=== PATIENT | female | born 1980 | race Two or more races ===

== ENCOUNTER 2024-08-21 13:42 | Inpatient (IN) | payer OTHER ==
[~2024-08-21] VITALS: Ht 162.6 cm; Wt 61.7 kg
[2024-08-21] MEDS ORDERED: SODIUM CHLORIDE 0.45 % 1,000 ML IV STA (14:09)
[2024-08-21] MEDS ORDERED: ONDANSETRON HCL 2 MG/ML VIAL IV STA (14:09)
[2024-08-21] MEDS ORDERED: PANTOPRAZOLE SODIUM 40 MG/VIAL VIAL IV PUSH STA (14:09)
[2024-08-21] MEDS ORDERED: 0.9 % SODIUM CHLORIDE 1,000 ML IV STA (14:11)
[2024-08-21 14:50] LABS: HEMATOCRIT 35.2 % (36.0-45.00); HEMOGLOBIN 11.8 g/dL (12.0-15.00); MEAN CELL VOLUME 87.2 fL (80.00-100.00); MEAN CORPUSCULAR HEMOGLOBIN 29.2 pg (27.00-32.0); MEAN CORPUSCULAR HGB CONC 33.5 g/dl (32.0-36.0); RED BLOOD COUNT 4.04 M/uL (4.00-6.00); RED CELL DISTRIBUTION WIDTH 16.2 % (11.5-14.5)
[2024-08-21 14:59] LABS: PLATELET COUNT 87 K/uL (150-450)
[2024-08-21 15:08] LABS: ALBUMIN 4.4 gm/dL (3.4-5.0); BILIRUBIN TOTAL 0.82 mg/dL (0.3-1.2); CALCIUM 9.4 mg/dL (8.5-10.1); CREATININE SERUM 0.96 mg/dL (0.55-1.02); GFR 63.14; GLOBULINA 3.9 G/DL (2.4-3.5); POTASSIUM 3.42 mEq/L (3.5-5.1); TOTAL PROTEIN 8.3 gm/dL (6.4-8.2)
[2024-08-21 15:14] LABS: INR 1.05; PROTHROMBIN TIME 11.4 SECONDS (9.0-11.5)
[2024-08-21] MEDS ORDERED: ONDANSETRON HCL 4 MG in 0.9 % SODIUM CHLORIDE 50 ML IV NR (17:15)
[2024-08-21] MEDS ORDERED: ONDANSETRON HCL 4 MG in 0.9 % SODIUM CHLORIDE 50 ML IV PRN (17:15)
[2024-08-21] MEDS ORDERED: ACETAMINOPHEN 500 MG GEL..CAP PO ONE (17:15)
[2024-08-21] MEDS ORDERED: ACETAMINOPHEN 500 MG GEL..CAP PO PRN (17:15)
[2024-08-21] MEDS ORDERED: 0.9 % SODIUM CHLORIDE 1,000 ML IV SCH (17:15)
[2024-08-21 18:11] LABS: MAGNESIUM 1.6 mg/dL (1.8-2.4); PHOSPHOROUS 2.2 mg/dL (2.5-4.9)
[2024-08-21 19:32] VITALS: BP 110/70; O2SAT 97
[2024-08-22 02:17] VITALS: BP 109/68; O2SAT 97
[2024-08-22 03:46] LABS: URINE APPEARANCE Cloudy; URINE BILIRRUBIN Negative (NEGATIVE); URINE BLOOD Moderate; URINE COLOR Dark Yellow; URINE GLUCOSE Negative (NEGATIVE); URINE LEUKOCYTE Negative; URINE NITRATE Negative; URINE PROTEIN 30 (NEGATIVE)
[2024-08-22 03:47] LABS: URINE BACTERIA 1503.1 uL (0.0-1933); URINE CAST 2.13 uL (0.0-1.40); URINE EPITHELIAL CELLS 92.2 uL (0.0-38.8); URINE RBC 103.5 uL (0.0-20.8); URINE WBC 25.8 uL (0.0-23.2)
[2024-08-22 04:08] LABS: URINE KETONE 80 (NEGATIVE); URINE MUCUS MODERATE
[2024-08-22 06:43] LABS: HEMOGLOBIN 9.8 g/dL (12.0-15.00); MEAN CELL VOLUME 87.8 fL (80.00-100.00); MEAN CORPUSCULAR HEMOGLOBIN 29.7 pg (27.00-32.0); MEAN CORPUSCULAR HGB CONC 33.8 g/dl (32.0-36.0); RED CELL DISTRIBUTION WIDTH 16.3 % (11.5-14.5)
[2024-08-22 08:07] LABS: PLATELET COUNT 69 K/uL (150-450)
[2024-08-22 08:27] VITALS: BP 106/64
[2024-08-22] MEDS ORDERED: PANTOPRAZOLE SODIUM 40 MG/VIAL VIAL IV SCH ×2 (09:00→21:00)
[2024-08-22] MEDS ORDERED: VITAMIN B COMPLEX 1 EACH PO SCH (11:06)
[2024-08-22] MEDS ORDERED: THIAMINE HCL 100 MG/ML 2 ML VIAL IV SCH (11:07)
[2024-08-22] MEDS ORDERED: MULTIVIT INFUSN,ADULT 4,VIT K 10 ML VIAL IV SCH (11:07)
[2024-08-22] MEDS ORDERED: SOD FERRIC GLUC COMPLX/SUCROSE 62.5 MG/5 ML AMPUL IV SCH (11:08)
[2024-08-22] MEDS ORDERED: CYCLOBENZAPRINE HCL 5 MG TABLET PO PRN (11:15)
[2024-08-22 18:47] VITALS: BP 100/49
[2024-08-23 03:06] VITALS: BP 109/52
[2024-08-23 08:06] LABS: HEMATOCRIT 27.9 % (36.0-45.00); HEMOGLOBIN 9.3 g/dL (12.0-15.00); MEAN CELL VOLUME 87.2 fL (80.00-100.00); MEAN CORPUSCULAR HEMOGLOBIN 29.1 pg (27.00-32.0); MEAN CORPUSCULAR HGB CONC 33.4 g/dl (32.0-36.0); RED CELL DISTRIBUTION WIDTH 16.2 % (11.5-14.5)
[2024-08-23 08:44] LABS: CALCIUM 7.7 mg/dL (8.5-10.1); CREATININE SERUM 0.62 mg/dL (0.55-1.02); GFR 104.57; POTASSIUM 3.32 mEq/L (3.5-5.1)
[2024-08-23 09:14] LABS: PLATELET COUNT 35 K/uL (150-450)
[2024-08-23 09:17] VITALS: BP 112/72
[2024-08-23] MEDS ORDERED: OMEGA 3-6-9 CO400 MG PO (12:07)
[2024-08-23] MEDS ORDERED: FOLIC ACID 5 MG/ML VIAL IV SCH (17:00)
[2024-08-23 18:05] VITALS: BP 91/44
[2024-08-23] MEDS ORDERED: PROMETHAZINE HCL 25 MG/ML AMPUL IM PRN (22:15)
[2024-08-23] MEDS ORDERED: PROMETHAZINE HCL 25 MG/ML AMPUL IM ONE (22:15)
[2024-08-24 00:41] VITALS: BP 112/73; O2SAT 97
[2024-08-24 07:27] LABS: BILIRUBIN TOTAL 0.82 mg/dL (0.3-1.2)
[2024-08-24 07:49] LABS: CALCIUM 7.4 mg/dL (8.5-10.1); CREATININE SERUM 0.54 mg/dL (0.55-1.02); GFR 122.64; POTASSIUM 3.22 mEq/L (3.5-5.1)
[2024-08-24 08:21] LABS: HEMATOCRIT 26.8 % (36.0-45.00); HEMOGLOBIN 9.2 g/dL (12.0-15.00); MEAN CELL VOLUME 85.6 fL (80.00-100.00); MEAN CORPUSCULAR HEMOGLOBIN 29.5 pg (27.00-32.0); MEAN CORPUSCULAR HGB CONC 34.4 g/dl (32.0-36.0); RED BLOOD COUNT 3.13 M/uL (4.00-6.00); RED CELL DISTRIBUTION WIDTH 16.4 % (11.5-14.5)
[2024-08-24 08:36] VITALS: BP 95/63
[2024-08-24] MEDS ORDERED: PANTOPRAZOLE SODIUM 40 MG/VIAL VIAL IV SCH (09:00)
[2024-08-24 11:16] LABS: PLATELET COUNT 23 K/uL (150-450)
[2024-08-24 17:31] VITALS: BP 111/63
[2024-08-25 00:34] VITALS: BP 104/68; O2SAT 97
[2024-08-25 07:44] LABS: HEMATOCRIT 29.5 % (36.0-45.00); HEMOGLOBIN 10.1 g/dL (12.0-15.00); MEAN CELL VOLUME 85.3 fL (80.00-100.00); MEAN CORPUSCULAR HEMOGLOBIN 29.2 pg (27.00-32.0); MEAN CORPUSCULAR HGB CONC 34.2 g/dl (32.0-36.0); RED BLOOD COUNT 3.46 M/uL (4.00-6.00); RED CELL DISTRIBUTION WIDTH 16.3 % (11.5-14.5)
[2024-08-25 08:42] LABS: PLATELET COUNT 38 K/uL (150-450)
[2024-08-25 09:16] VITALS: BP 108/72
[2024-08-25 16:56] LABS: HEMATOCRIT 25.2 % (36.0-45.00); MEAN CELL VOLUME 86.9 fL (80.00-100.00); MEAN CORPUSCULAR HGB CONC 33.7 g/dl (32.0-36.0); RED BLOOD COUNT 2.89 M/uL (4.00-6.00); RED CELL DISTRIBUTION WIDTH 16.6 % (11.5-14.5)
[2024-08-25 17:07] LABS: CALCIUM 7.8 mg/dL (8.5-10.1); CREATININE SERUM 0.48 mg/dL (0.55-1.02); GFR 140.5; POTASSIUM 3.2 mEq/L (3.5-5.1)
[2024-08-25 17:13] LABS: MEAN CORPUSCULAR HEMOGLOBIN 29.4 pg (27.00-32.0)
[2024-08-25 17:19] LABS: HEMOGLOBIN 8.5 g/dL (12.0-15.00)
[2024-08-25 17:20] LABS: PLATELET COUNT 54 K/uL (150-450)
[2024-08-25 18:05] VITALS: BP 119/64
[2024-08-26 02:16] VITALS: BP 115/74; O2SAT 98
[2024-08-26 07:49] LABS: INR 1.02; PARTIAL THROMBOPLASTIN TIME 37.6 SECONDS (22.0-34.0); PROTHROMBIN TIME 11.1 SECONDS (9.0-11.5)
[2024-08-26 09:24] VITALS: BP 120/80
[2024-08-26] MEDS ORDERED: FUROsemide 20 MG/2 ML VIAL IV SCH (10:00)
[2024-08-26 11:59] LABS: HEMATOCRIT 26.9 % (36.0-45.00); MEAN CELL VOLUME 87.2 fL (80.00-100.00); MEAN CORPUSCULAR HEMOGLOBIN 29.4 pg (27.00-32.0); MEAN CORPUSCULAR HGB CONC 33.7 g/dl (32.0-36.0); RED BLOOD COUNT 3.08 M/uL (4.00-6.00); RED CELL DISTRIBUTION WIDTH 16.8 % (11.5-14.5)
[2024-08-26 12:34] LABS: ALBUMIN 2.9 gm/dL (3.4-5.0); BILIRUBIN TOTAL 0.84 mg/dL (0.3-1.2); CREATININE SERUM 0.38 mg/dL (0.55-1.02); GFR 183.97; POTASSIUM 3.27 mEq/L (3.5-5.1); TOTAL PROTEIN 5.9 gm/dL (6.4-8.2)
[2024-08-26 12:49] LABS: PLATELET COUNT 65 K/uL (150-450)
[2024-08-26] MEDS ORDERED: ESTROGENS, CONJUGATED 25 MG VIAL IV NR ×2 (14:45→17:00)
[2024-08-26] MEDS ORDERED: POTASSIUM CHLORIDE 20MEQ/100ML H2O PB IV NR (14:45)
[2024-08-26 17:44] VITALS: BP 103/79; O2SAT 97
[2024-08-26] MEDS ORDERED: MORPHINE SULFATE 2 MG/ML CARTRIDGE IV PRN (20:15)
[2024-08-26] MEDS ORDERED: PROMETHAZINE HCL 25 MG/ML AMPUL IM PRN (23:30)
[2024-08-26] MEDS ORDERED: ONDANSETRON HCL 4 MG in 0.9 % SODIUM CHLORIDE 50 ML IV PRN (23:30)
[2024-08-27 01:49] VITALS: BP 117/78; O2SAT 97
[2024-08-27 08:09] LABS: HEMATOCRIT 24.2 % (36.0-45.00); MEAN CORPUSCULAR HGB CONC 33.6 g/dl (32.0-36.0); RED BLOOD COUNT 2.79 M/uL (4.00-6.00); RED CELL DISTRIBUTION WIDTH 16.4 % (11.5-14.5)
[2024-08-27 08:14] LABS: HEMOGLOBIN 8.2 g/dL (12.0-15.00); MEAN CORPUSCULAR HEMOGLOBIN 29.3 pg (27.00-32.0); PLATELET COUNT 115 K/uL (150-450)
[2024-08-27 08:32] LABS: ALBUMIN 2.9 gm/dL (3.4-5.0); BILIRUBIN TOTAL 0.58 mg/dL (0.3-1.2); CALCIUM 7.6 mg/dL (8.5-10.1); CREATININE SERUM 0.44 mg/dL (0.55-1.02); GFR 155.34; POTASSIUM 3.42 mEq/L (3.5-5.1); TOTAL PROTEIN 5.9 gm/dL (6.4-8.2)
[2024-08-27 08:44] VITALS: BP 123/82; O2SAT 96
[2024-08-27] MEDS ORDERED: SODIUM CHLORIDE 0.45 % 1,000 ML IV SCH (14:00)
[2024-08-27 16:16] VITALS: BP 133/84
[2024-08-27] MEDS ORDERED: PANTOPRAZOLE SODIUM 40 MG/VIAL VIAL IV SCH (21:00)
[2024-08-28 01:48] VITALS: BP 120/80; O2SAT 97
[2024-08-28 08:36] LABS: HEMATOCRIT 25.1 % (36.0-45.00); MEAN CELL VOLUME 85.6 fL (80.00-100.00); MEAN CORPUSCULAR HEMOGLOBIN 29.6 pg (27.00-32.0); MEAN CORPUSCULAR HGB CONC 34.6 g/dl (32.0-36.0); PLATELET COUNT 169 K/uL (150-450); RED BLOOD COUNT 2.93 M/uL (4.00-6.00); RED CELL DISTRIBUTION WIDTH 17.2 % (11.5-14.5)
[2024-08-28 08:42] LABS: HEMOGLOBIN 8.7 g/dL (12.0-15.00)
[2024-08-28 09:09] VITALS: BP 129/85; O2SAT 96
[2024-08-28 09:20] LABS: ALBUMIN 3.1 gm/dL (3.4-5.0); BILIRUBIN TOTAL 0.6 mg/dL (0.3-1.2); BILIRUBIN,CONJUGATED 0.22 mg/dL (0.0-0.2); BILIRUBIN,UNCONJUGATED 0.38 mg/dL (0.0-0.6); CALCIUM 8.3 mg/dL (8.5-10.1); CREATININE SERUM 0.47 mg/dL (0.55-1.02); GFR 143.95; GLOBULINA 3.3 G/DL (2.4-3.5); POTASSIUM 3.78 mEq/L (3.5-5.1); TOTAL PROTEIN 6.4 gm/dL (6.4-8.2)
== END 2024-08-28 13:43 | disposition home or self-care (01) | DRG 866 ==
LOC: ER 13:44 → MEDJ 17:35
PROVIDERS: General Practice; Internal Medicine; Internal Medicine Hematology & Oncology; Student in an Organized Health Care Education/Training Program; ADMIT Internal Medicine; ATTEND Internal Medicine
PROC: BW40ZZZ Ultrasonography of Abdomen (ICD-10-PCS; 2024-08-21)
PROC: 30233R1 Transfusion of Nonautologous Platelets into Peripheral Vein, Percutaneous Approach (ICD-10-PCS; principal; 2024-08-25)
PROC: BW40ZZZ Ultrasonography of Abdomen (ICD-10-PCS; 2024-08-27)
DX: A90 Dengue fever [classical dengue] (principal); D69.59 Other secondary thrombocytopenia; B34.9 Viral infection, unspecified; D52.0 Dietary folate deficiency anemia; N93.9 Abnormal uterine and vaginal bleeding, unspecified; K06.8 Other specified disorders of gingiva and edentulous alveolar ridge; E86.0 Dehydration; D64.89 Other specified anemias; R60.0 Localized edema

== ENCOUNTER 2025-10-02 08:32 | Outpatient (CLI) | payer OTHER ==
[~2025-10-02 08:32] MED LIST: OMEGA 3-6-9 CO400 MG PO
== END 2025-10-02 08:34 | disposition home or self-care (01) ==
LOC: SONOGRAMA 08:32
PROVIDERS: ATTEND Pathology Anatomic Pathology & Clinical Pathology
DX: D34 Benign neoplasm of thyroid gland (principal); E07.89 Other specified disorders of thyroid; E04.2 Nontoxic multinodular goiter